=== PATIENT | female | born 1980 | race Caucasian/White ===

== ENCOUNTER 2020-03-21 11:02 | Outpatient (CLI) | payer BC, SELFPAY ==
--- NOTE | 2020-03-21 | CT_ITS ---
NOTE: Report was unsigned for reason: Ordering provider was edited. Original Signature date and time was: 03/21/20 @1239 WS: [id number] CT ABDOMEN AND PELVIS WITH CONTRAST HISTORY: RLQ PAIN TECHNIQUE: Imaging performed of the abdomen and pelvis with IV contrast. Single phase imaging of the abdomen. Coronal and sagittal reformats are submitted. All CT scans at [facility] use at least one of these dose optimization techniques: automated exposure control; mA and/or kV adjustment per patient size (includes targeted exams where dose is matched to clinical indication); or iterative reconstruction. IV CONTRAST: Omnipaque 300; 95 mL IV. Oral contrast: Yes. DLP: 1005.05 mGycm COMPARISON: 10/09/2017 Lower thorax: Lung bases are clear. Heart is normal size. No hiatal hernia. Liver/biliary system: Normal size with no intrahepatic dilatation. Gallbladder: Normal. No gallstones or wall thickening. No pericholecystic fluid. Pancreas: Normal. Spleen: Normal. Adrenal glands: Normal. Right kidney: Normal. Left kidney: Normal. Aorta: Normal. Lymphadenopathy: None. Free fluid: None. GI tract: Normal appendix. There is moderate diffuse constipation. Changing caliber of the descending colon but no discrete mass identified. Abdominal wall: Unremarkable abdominal wall. No hernia. Pelvis: Mildly retroverted uterus. No free fluid in the pelvis. Small bilateral ovarian follicles. Bones: Unremarkable. [facility] CT/CT abdomen pelvis w con* [id number] IMPRESSION: 1. No acute abdominal or pelvic abnormalities are identified. 2. Moderate constipation.
[2020-03-21] MEDS: iohexol 300 mg/mL 50 mL Btl PO (12:12)
[2020-03-21] MEDS: iohexol 300 mg/mL 100 mL Btl IV (12:39)
== END 2020-03-21 11:03 | disposition home or self-care (01) ==
LOC: RADWPI 11:05
PROVIDERS: Family Provider Nurse Practitioner Family; PCP Nurse Practitioner Family; Visit Provider Nurse Practitioner Family
DX: R10.31 Right lower quadrant pain (principal); K59.00 Constipation, unspecified
CPT/HCPCS: 74177; Q9967

== ENCOUNTER 2020-06-03 11:16 | Outpatient (CLI) | payer BC, SELFPAY ==
--- NOTE | 2020-06-03 11:27 | XRR_ITS ---
PROCEDURE INFORMATION: Exam: XR Left Hand Exam date and time: 06/03/2020 11:49 AM Age: 40 years old Clinical indication: Pain and injury or trauma; Other: Caught hand in a fan; Blunt trauma (contusions or hematomas); Left; Injury date: 05/31/20; Additional info: Pain in left hand TECHNIQUE: Imaging protocol: XR Left hand. Views: 3 or more views. COMPARISON: No relevant prior studies available. FINDINGS: Bones/joints: Osseous structures of the hand are without an acute process. Distal radioulnar joint and radiocarpal joints grossly normal. Carpus without fracture. Metacarpals and phalangeal without fracture or dislocation. No erosive changes or periarticular calcifications. Soft tissues: Normal. XR/XR hand LT min 3V* [id number] IMPRESSION: Normal hand. No fracture. No foreign body.
== END 2020-06-03 11:17 | disposition home or self-care (01) ==
PROVIDERS: PCP Nurse Practitioner Family; Visit Provider Nurse Practitioner Family
DX: M79.642 Pain in left hand (principal)
CPT/HCPCS: 73130

== ENCOUNTER → 2022-07-21 12:57 | Outpatient (BNVA) | payer BC, SELFPAY | PROVIDERS: PCP Nurse Practitioner Family; Visit Provider Nurse Practitioner Women's Health | DX: N83.291 Other ovarian cyst, right side (principal) | CPT/HCPCS: 76830 ==

== ENCOUNTER → 2022-07-23 15:28 | Outpatient (BNVA) | payer BC, SELFPAY | PROVIDERS: PCP Nurse Practitioner Family; Visit Provider Nurse Practitioner Women's Health | DX: Z30.9 Encounter for contraceptive management, unspecified (principal) | CPT/HCPCS: 81025; 87255; 87529 ==

== ENCOUNTER → 2022-11-11 10:29 | Outpatient (BNVA) | payer BC, SELFPAY | PROVIDERS: PCP Nurse Practitioner Family; Visit Provider Obstetrics & Gynecology | DX: N89.8 Other specified noninflammatory disorders of vagina (principal); N90.89 Other specified noninflammatory disorders of vulva and perineum | CPT/HCPCS: 87529 ==

== ENCOUNTER 2023-04-29 14:35 | Outpatient (CLI) | payer BC, SELFPAY ==
--- NOTE | 2023-04-29 14:47 | XR_ITS ---
WS: [id number] Exam: XR hip LT 2-3V wo/w pel* [id number] Date/Time of Exam: 04/29/2023 2:54 PM Reason For Exam: OTHER BURSITIS OF L HIP Comparison 11/19/2017. No fracture or dislocation. The joint spaces preserved. Normal soft tissues. Bony sclerosis of the pu bic symphysis. IMPRESSION: 1. Normal LEFT hip.
== END 2023-04-29 14:36 | disposition home or self-care (01) ==
PROVIDERS: PCP Nurse Practitioner Family; Visit Provider Nurse Practitioner Family
DX: M70.72 Other bursitis of hip, left hip (principal)
CPT/HCPCS: 73502

== ENCOUNTER → 2023-07-12 09:07 | Outpatient (BNVA) | payer BC, SELFPAY | PROVIDERS: PCP Nurse Practitioner Family; Visit Provider Nurse Practitioner Women's Health | DX: Z30.9 Encounter for contraceptive management, unspecified (principal) | CPT/HCPCS: 81025 ==

== ENCOUNTER → 2024-01-10 09:28 | Outpatient (BNVA) | payer BC, SELFPAY | PROVIDERS: PCP Nurse Practitioner Family; Referring Provider Nurse Practitioner Family; Visit Provider Specialist | DX: M25.532 Pain in left wrist (principal); M67.432 Ganglion, left wrist | CPT/HCPCS: 73110 ==

== ENCOUNTER → 2024-03-20 08:47 | Outpatient (BNVA) | payer BC, SELFPAY | PROVIDERS: PCP Nurse Practitioner Family; Visit Provider Nurse Practitioner | DX: M67.432 Ganglion, left wrist (principal); M25.532 Pain in left wrist | CPT/HCPCS: 73110 ==

== ENCOUNTER 2024-04-06 09:23 | Outpatient (CLI) | payer BC, SELFPAY ==
--- NOTE | 2024-04-06 09:20 | MM_ITS ---
WS: [id number] VIEWS: MLO and CC views both breasts. 3D digital tomosynthesis is also included in this exam. Baseline study Findings: The breasts are heterogeneously dense, which may obscure small masses. No suspicious mass, tumor calcification or architectural distortion in either breast. MM/MM scr BI tomosynthesis [id number] Impression: BI-RADS: 2 - Benign FOLLOW-UP: 1 Year Follow-up This mammogram was also analyzed by the Computer Aided Detection System [employer].
== END 2024-04-06 09:24 | disposition home or self-care (01) ==
LOC: MOBLMAM 09:24
PROVIDERS: PCP Nurse Practitioner Women's Health; Visit Provider Nurse Practitioner Women's Health
DX: Z12.31 Encounter for screening mammogram for malignant neoplasm of breast (principal); R92.333 Mammographic heterogeneous density, bilateral breasts
CPT/HCPCS: 77063; 77067

== ENCOUNTER 2024-05-09 15:01 | Outpatient (CLI) | payer BC, SELFPAY ==
--- NOTE | 2024-05-09 15:05 | MRR_ITS ---
PROCEDURE INFORMATION: Exam: MR Left Lower Extremity Joint Without Contrast; Hip Exam date and time: 05/09/2024 3:22 PM Age: 44 years old Clinical indication: Patient HX: Left hip pain for several years, gives out and causes her to fall, no known injury cause; Additional info: Left lower quadrant pain TECHNIQUE: Imaging protocol: Magnetic resonance imaging of the left lower extremity joint without contrast. Exam focused on the hip. COMPARISON: CR XR hip LT 2-3V wo/w pel* [id number] 04/29/2023 2:57 PM FINDINGS: The hip joint space is preserved. The articular cartilage is intact. There is no evidence of acute fracture or dislocation. There are mild degenerative changes of the pubic symphysis with subtle associated periarticular bone marrow edema, corresponding to sclerosis on the recent plain radiographs. Bone marrow signal is otherwise normal. Alignment is anatomic. The visualized muscles and tendons about the hip are normal in appearance. The ligamentum teres and transverse acetabular ligament are intact. There is no significant hip joint effusion. Evaluation of the acetabular labrum is suboptimal without intra-articular contrast. No obvious labral tear is identified. MR/MR hip LT wo con* [id number] IMPRESSION: Findings compatible with chronic pubic symphysis, as described above.
== END 2024-05-09 15:02 | disposition home or self-care (01) ==
LOC: RAD 15:02
PROVIDERS: PCP Nurse Practitioner Family; Visit Provider Nurse Practitioner Family
DX: M85.30 Osteitis condensans, unspecified site (principal); R10.32 Left lower quadrant pain; R20.0 Anesthesia of skin
CPT/HCPCS: 73721

== ENCOUNTER → 2024-06-29 15:47 | Outpatient (BNVA) | payer BC, SELFPAY | PROVIDERS: PCP Nurse Practitioner Family; Visit Provider Orthopaedic Surgery | DX: M25.552 Pain in left hip (principal) | CPT/HCPCS: 72170; 73502 ==

== ENCOUNTER → 2024-07-20 08:48 | Outpatient (BNVA) | payer BC, SELFPAY | PROVIDERS: Visit Provider Orthopaedic Surgery | DX: S32.592A Other specified fracture of left pubis, initial encounter for closed fracture (principal); X58.XXXA Exposure to other specified factors, initial encounter; M25.552 Pain in left hip | CPT/HCPCS: 72170; 73502 ==

== ENCOUNTER 2024-07-20 15:31 | Outpatient (RCR) | payer BC, SELFPAY | END 2024-08-11 23:59 | disposition home or self-care (01) | LOC: SPT 15:31 | PROVIDERS: Visit Provider Orthopaedic Surgery | DX: M25.552 Pain in left hip (principal) | CPT/HCPCS: 97110; 97161 ==

== ENCOUNTER 2024-08-12 06:00 | Outpatient (RCR) | payer BC, SELFPAY | END 2024-09-11 23:59 | disposition home or self-care (01) | LOC: SPT 06:00 | PROVIDERS: Visit Provider Orthopaedic Surgery | DX: M25.552 Pain in left hip (principal) | CPT/HCPCS: 97110 ==

== ENCOUNTER 2024-09-12 05:00 | Outpatient (RCR) | payer BC, SELFPAY | END 2024-10-09 09:57 | disposition home or self-care (01) | LOC: SPT 05:00 | PROVIDERS: PCP Nurse Practitioner Family; Visit Provider Orthopaedic Surgery | DX: M25.552 Pain in left hip (principal) | CPT/HCPCS: 97110 ==

== ENCOUNTER 2025-01-04 07:40 | Outpatient (CLI) | payer BC, SELFPAY ==
--- NOTE | 2025-01-04 08:43 | XR_ITS ---
WS: [id number] Left elbow, 3 views, 01/04/2025 Clinical Data: LEFT ELBOW PAIN Comparison: None. Findings: No fractures or dislocations are seen. The radial head is normal. The soft tissues are unremarkable. XR/XR elbow LT min 3V* [id number] Impression: Negative left elbow.
== END 2025-01-04 07:41 | disposition home or self-care (01) ==
LOC: RAD 07:41
PROVIDERS: PCP Nurse Practitioner Family; Visit Provider Nurse Practitioner Family
DX: M25.522 Pain in left elbow (principal); S50.02XD Contusion of left elbow, subsequent encounter; X58.XXXD Exposure to other specified factors, subsequent encounter; M62.81 Muscle weakness (generalized)
CPT/HCPCS: 73080